=== PATIENT | female | born 1975 | race Caucasian/White ===

== ENCOUNTER 2019-02-04 17:51 | Emergency (ER) | payer MEDICAID ==
[~2019-02-04] VITALS: Ht 165.1 cm; Wt 81.0 kg
[2019-02-04 18:03] VITALS: BP 179/91
== END 2019-02-04 22:00 | disposition left against medical advice (07) ==
LOC: ER 20:31
DX: R10.9 Unspecified abdominal pain (principal); Z53.21 Procedure and treatment not carried out due to patient leaving prior to being seen by health care provider